=== PATIENT | male | born 1955 | race Caucasian/White ===

== ENCOUNTER → 2019-10-27 09:16 | Outpatient (BNVA) | payer MEDICARE, SELFPAY | PROVIDERS: Family Provider Nurse Practitioner Family; PCP Nurse Practitioner Family; Visit Provider Nurse Practitioner Family | DX: R89.9 Unspecified abnormal finding in specimens from other organs, systems and tissues (principal) | CPT/HCPCS: 80076 ==

== ENCOUNTER → 2020-04-12 11:45 | Outpatient (BNVA) | payer MEDICARE, SELFPAY | PROVIDERS: Family Provider Nurse Practitioner Family; PCP Nurse Practitioner Family; Visit Provider Nurse Practitioner Family | DX: Z00.00 Encounter for general adult medical examination without abnormal findings (principal); Z13.1 Encounter for screening for diabetes mellitus; Z13.220 Encounter for screening for lipoid disorders; E78.2 Mixed hyperlipidemia | CPT/HCPCS: 80048; 80061 ==

== ENCOUNTER → 2020-05-13 09:03 | Outpatient (BNVA) | payer MEDICARE, SELFPAY | PROVIDERS: Family Provider Nurse Practitioner Family; PCP Nurse Practitioner Family; Visit Provider Urology | DX: R97.20 Elevated prostate specific antigen [PSA] (principal) | CPT/HCPCS: 81001; 84153 ==

== ENCOUNTER → 2021-05-17 08:57 | Outpatient (BNVA) | payer MEDICARE, SELFPAY | PROVIDERS: Family Provider Nurse Practitioner Family; PCP Nurse Practitioner Family; Visit Provider Urology | DX: R97.20 Elevated prostate specific antigen [PSA] (principal); N52.9 Male erectile dysfunction, unspecified | CPT/HCPCS: 81003; 84153 ==

== ENCOUNTER 2022-05-25 09:23 | Outpatient (CLI) | payer MEDICARE, SELFPAY ==
[2022-05-25 10:48] LABS: Prostate Specific AG Urology 3.16 ng/mL (0-4)
== END 2022-05-25 09:24 | disposition home or self-care (01) ==
LOC: LAB 09:26
PROVIDERS: Family Provider Nurse Practitioner Family; PCP Nurse Practitioner Family; Visit Provider Urology
DX: R97.20 Elevated prostate specific antigen [PSA] (principal); N52.9 Male erectile dysfunction, unspecified
CPT/HCPCS: 36415; 81003; 84153; 99213

== ENCOUNTER 2023-05-29 08:09 | Outpatient (CLI) | payer MEDICARE, SELFPAY | END 2023-05-29 08:10 | disposition home or self-care (01) | LOC: LAB 08:14 | PROVIDERS: PCP Nurse Practitioner Family; Visit Provider Urology | DX: R97.20 Elevated prostate specific antigen [PSA] (principal) | CPT/HCPCS: 36415; 84153 ==

== ENCOUNTER → 2023-09-14 14:42 | Outpatient (BNVA) | payer MEDICARE, SELFPAY | PROVIDERS: PCP Nurse Practitioner Family; Visit Provider Nurse Practitioner Family | DX: J06.9 Acute upper respiratory infection, unspecified (principal); U07.1 COVID-19 | CPT/HCPCS: 87400; 87426 ==

== ENCOUNTER 2024-06-06 10:35 | Outpatient (CLI) | payer MEDICARE, SELFPAY ==
--- NOTE | 2024-06-06 10:47 | XR_ITS ---
WS: [id number] Examination: XR thoracic spine 3V* 14522 Reason for Exam: M54.9 - Dorsalgia, unspecified Date: 06/06/2024 Comparison: None. Findings: There is prominent scoliosis of the thoracic spine with convexity to the right. The pedicles and bone density appear maintained. Mild mid thoracic compression is suspected without anterior wedging or subluxation Hypertrophic changes of the thoracic spine are present XR/XR thoracic spine 3V* [id number] Impression: There is scoliosis with convexity to the right. Hypertrophic changes are noted throughout. I suspect there is mild compression without subluxation of a couple mid thoracic vertebral bodies.
--- NOTE | 2024-06-06 10:47 | XR_ITS ---
WS: [email or web address] Examination: XR lumbar spine 2-3V* [id number] Reason for Exam: M41.9 - Scoliosis, unspecified Date: 06/06/2024 Comparison: None. Findings: Bone density is maintained as are the pedicles There is mild curvature of the lower lumbar spine with convexity to the right. There is no wedging or compression. There is no subluxation Diffuse severe degenerative changes of the lumbar discs are noted. There is disc base narrowing. Prom inent anterior osteophytes are present with facet arthropathy. XR/XR lumbar spine 2-3V* [id number] Impression: Scoliosis and severe degenerative disc disease of the lumbar spine is noted.
== END 2024-06-06 10:36 | disposition home or self-care (01) ==
LOC: RAD 10:43
PROVIDERS: PCP Nurse Practitioner Family; Visit Provider Nurse Practitioner Family
DX: M41.85 Other forms of scoliosis, thoracolumbar region (principal); M47.814 Spondylosis without myelopathy or radiculopathy, thoracic region; M51.36 Other intervertebral disc degeneration, lumbar region; M25.78 Osteophyte, vertebrae; M54.9 Dorsalgia, unspecified
CPT/HCPCS: 72072; 72100; 84153

== ENCOUNTER → 2025-02-10 09:22 | Outpatient (BNVA) | payer MEDICARE, SELFPAY | PROVIDERS: PCP Nurse Practitioner Family; Visit Provider Nurse Practitioner Family | DX: Z00.00 Encounter for general adult medical examination without abnormal findings (principal); Z13.1 Encounter for screening for diabetes mellitus; E78.5 Hyperlipidemia, unspecified; R97.20 Elevated prostate specific antigen [PSA] | CPT/HCPCS: 80053; 80061; 83036; 84153; 85025 ==

== ENCOUNTER → 2025-06-05 10:03 | Outpatient (BNVA) | payer MEDICARE, SELFPAY | PROVIDERS: PCP Nurse Practitioner Family; Visit Provider Nurse Practitioner Family | DX: I10 Essential (primary) hypertension (principal); R53.83 Other fatigue | CPT/HCPCS: 80053; 80061; 85025 ==

== ENCOUNTER 2025-06-09 08:46 | Outpatient (CLI) | payer MEDICARE, SELFPAY ==
--- NOTE | 2025-06-09 08:56 | XR_ITS ---
WS: [id number] Left foot, 3 views, 06/09/2025 Clinical Data: M79.672 - Pain in left foot Comparison: None. Findings: No fractures or dislocations are seen. No bone destruction or erosion is noted. The joint spaces and soft tissues are normal. XR/XR foot LT min 3V* [id number] Impression: Negative left foot.
== END 2025-06-09 08:47 | disposition home or self-care (01) ==
LOC: RAD 08:49
PROVIDERS: PCP Nurse Practitioner Family; Visit Provider Nurse Practitioner Family
DX: M79.672 Pain in left foot (principal)
CPT/HCPCS: 73630

== ENCOUNTER → 2025-07-07 13:25 | Outpatient (BNVA) | payer MEDICARE, SELFPAY | PROVIDERS: PCP Nurse Practitioner Family; Visit Provider Podiatrist Foot & Ankle Surgery | DX: M21.622 Bunionette of left foot (principal); M20.42 Other hammer toe(s) (acquired), left foot | CPT/HCPCS: 99203 ==